=== PATIENT | male | born 1990 | race Two or more races ===

== ENCOUNTER 2023-11-30 11:27 | Emergency (ER) | payer MEDICAID, OTHER ==
[~2023-11-30] VITALS: Ht 162.6 cm; Wt 81.9 kg
[2023-11-30 12:46] VITALS: BP 130/73; PULSE 54; RESP 16; TEMP 97.7; O2SAT 99
[2023-11-30] MEDS ORDERED: CYCL-837 PO (13:48)
[2023-11-30] MEDS ORDERED: LIDO5DIS21 TOP (13:48)
[2023-11-30] MEDS ORDERED: IBUP-1454 PO (13:48)
[2023-11-30] MEDS: methylPREDNISolone SOD SUCC 125 MG/2 ML VL IM ONE (14:08)
[2023-11-30] MEDS: KETOROLAC TROMETH 60MG/2ML VIAL IM ONE (14:08)
== END 2023-11-30 13:48 | disposition home or self-care (01) ==
LOC: ER 11:27
DX: M54.50 Low back pain, unspecified (principal); M54.9 Dorsalgia, unspecified; X50.1XXA Overexertion from prolonged static or awkward postures, initial encounter; Y93.89 Activity, other specified; Y92.89 Other specified places as the place of occurrence of the external cause; Y99.8 Other external cause status
CPT/HCPCS: 96372; 99284; J1885; J2919